=== PATIENT | female | born 1995 | race Asian ===

== ENCOUNTER 2020-02-05 07:23 | Emergency (ER) | payer OTHER ==
[2020-02-05 07:34] VITALS: BP 116/74
[2020-02-05] MEDS ORDERED: IBUPROFEN 800 MG TABLET PO STA (07:35)
--- NOTE | 2020-02-05 07:37 | ED Physician Documentation ---
PD HPI DYSPNEA - Stated complaint Stated Complaint: COUGH/CHEST TIGHTNESS/DIFF BREATH - Chief complaint Chief Complaint: Resp - History obtained from History obtained from: Patient - History of Present Illness Timing - onset: Other (Previously healthy 24-year-old woman, smoker, active duty in the [employer]. She has had a nonproductive cough for a week associated with some shortness of breath and chest heaviness starting more today. She denies pedal edema or calf pain. No fevers.) Review of Systems Constitutional: denies: Fever, Chills Ears: denies: Drainage/discharge Nose: denies: Rhinorrhea / runny nose Throat: denies: Sore throat Cardiac: reports: Chest pain / pressure. denies: Palpitations, Pedal edema, Calf pain Respiratory: reports: Dyspnea, Cough GI: denies: Abdominal Pain, Nausea PD PAST MEDICAL HISTORY - Past Medical History Past Medical History: No - Past Surgical History Past Surgical History: No - Present Medications Home Medications: Ambulatory Orders Medication Instructions Recorded Confirmed Albuterol Sulf [Ventolin Hfa 1 - 2 puffs INH Q4HR PRN #1 inhaler 02/05/20 Inhaler] Ibuprofen [Motrin] 800 mg PO Q8H PRN #30 tablet 02/05/20 - Allergies Allergies/Adverse Reactions: Allergies Allergy/AdvReac Type Severity Reaction Status Date / Time shellfish derived Allergy Anaphylaxis Verified 02/05/20 07:30 - Social History Does the pt smoke?: Yes Smoking Status: Current every day smoker Does the pt drink ETOH?: Yes Does the pt have substance abuse?: No - Immunizations Immunizations are current?: Yes - POLST Patient has POLST: No PD ED PE NORMAL - Vitals Vital signs reviewed: Yes (Normal and unremarkable vital signs without tachycardia or hypoxemia) - General General: Alert and oriented X 3, No acute distress - HEENT HEENT: PERRL, EOMI - Neck Neck: Supple, no meningeal sign, No bony TTP - Cardiac Cardiac: RRR, No murmur - Respiratory Respiratory: No respiratory distress, Clear bilaterally - Extremities Extremities: No edema, No calf tenderness / cord - Neuro Neuro: Alert and oriented X 3, Normal speech Results - Vitals Vitals: Vital Signs - 24 hr 02/05/20 07:30 Temperature 36.8 C Heart Rate 85 Respiratory 16 Rate Blood Pressure 116/74 O2 Saturation 99 Oxygen O2 Source Room air - EKG (time done) 0740 Rate: Rate (enter#) (55) Rhythm: NSR [place]: Normal Intervals: Normal NC QRS: Normal Ischemia: Normal ST segments, Q waves (Minimal inferior, probably normal variant). No: ST elevation c/w ischemia, ST depression, T wave inversion Compare to prior EKG: Old EKG unavailable - Rads (name of study) 1v chest Radiology: EMP read contemporaneously (scoliosis, NAD) PD MEDICAL DECISION MAKING - ED course ED course: Is a young lady with what sounds like viral bronchitis, nonproductive cough. PE is considered but the history is atypical and she is PE RC negative. Departure - Departure Disposition: 01 Home, Self Care Clinical Impression: Viral bronchitis Condition: Good Record reviewed to determine appropriate education?: Yes Instructions: ED Upper Resp Infec No Abx Tx Prescriptions: Albuterol Sulf [Ventolin Hfa Inhaler] 1 - 2 puffs INH Q4HR PRN #1 inhaler PRN Reason: Shortness Of Air/Wheezing Ibuprofen [Motrin] 800 mg PO Q8H PRN #30 tablet PRN Reason: PAIN &/OR FEVER Comments: Follow-up with your doctor in 1 week if not better, return for new or worsening symptoms. Forms: Activity restrictions Discharge Date/Time: 02/05/20 08:07
--- NOTE | 2020-02-05 08:45 | XRAY Report ---
Reason: cough Procedure Date: 02/05/2020 Accession Number: [id number] / [id number] Procedure: XR - Chest 1 View X-Ray CPT Code: 67682 Final Report FULL RESULT: EXAM: CHEST RADIOGRAPHY EXAM DATE: 02/05/2020 07:54 AM. CLINICAL HISTORY: Cough. COMPARISON: None. TECHNIQUE: 1 view. FINDINGS: Lungs/Pleura: No focal opacities evident. No pleural effusion. No pneumothorax. Mediastinum: Within exam limitations, the cardiomediastinal contour is normal. Other: Moderate rightward convex mid thoracic scoliosis. IMPRESSION: No acute cardiopulmonary abnormality. [facility]
== END 2020-02-05 08:07 | disposition home or self-care (01) ==
LOC: ED 07:23
DX: F17.200 Nicotine dependence, unspecified, uncomplicated (principal); J20.8 Acute bronchitis due to other specified organisms
CPT/HCPCS: 71045; 81599; 93005; 99284; A9270